=== PATIENT | female | born 1965 | race Caucasian/White ===

== ENCOUNTER 2022-03-08 12:09 | Day surgery (SDC) | payer OTHER ==
[~2022-03-08] VITALS: Ht 172.7 cm; Wt 142.8 kg
[~2022-03-08 12:09] MED LIST: ALBU90OI INH; ANORO ELLIPTA1 EACH INH; ATOR80 PO; Aspir 8181 MG PO; ENTRESTO 97 MG1 EACH PO; FERROUS SULFAT325 M3 PO; FURO20 PO; GABA300 PO; JANTOVEN5 M1 PO; KAPSPARGO SPRI100 MG PO; MONT10T PO; NITR.4SL SL; Oxybutynin Chlo10 MG PO; PANT40 PO; TRAZ50 PO; TRELEGY ELLIPT1 EACH INH; VOLTAREN ARTHRI20 GM TP; WIXELA 250-501 EAC1 INH; XARELTO20 MG PO; ZYRTEC10 M2 PO
[2022-03-08] MEDS ORDERED: XARELTO20 MG (12:26)
[2022-03-08] MEDS ORDERED: FLONASE ALLERG9.9 ML (12:38)
== END 2022-03-08 14:49 | disposition home or self-care (01) ==
LOC: ORSCSDS 12:09
PROVIDERS: Internal Medicine Gastroenterology
PROC: 0DBH8ZX Excision of Cecum, Via Natural or Artificial Opening Endoscopic, Diagnostic (ICD-10-PCS; principal; 2022-03-08 15:00)
PROC: 0DBN8ZX Excision of Sigmoid Colon, Via Natural or Artificial Opening Endoscopic, Diagnostic (ICD-10-PCS; principal; 2022-03-08 15:00)
PROC: 0DBP8ZX Excision of Rectum, Via Natural or Artificial Opening Endoscopic, Diagnostic (ICD-10-PCS; principal; 2022-03-08 15:00)
DX: K62.5 Hemorrhage of anus and rectum (principal); K63.5 Polyp of colon; K62.1 Rectal polyp; R12 Heartburn; J44.9 Chronic obstructive pulmonary disease, unspecified; I25.10 Atherosclerotic heart disease of native coronary artery without angina pectoris; G47.33 Obstructive sleep apnea (adult) (pediatric); E66.01 Morbid (severe) obesity due to excess calories; Z68.42 Body mass index [BMI] 45.0-49.9, adult; Z79.01 Long term (current) use of anticoagulants; Z79.82 Long term (current) use of aspirin; Z79.51 Long term (current) use of inhaled steroids; Z79.899 Other long term (current) drug therapy; Z87.891 Personal history of nicotine dependence; K57.30 Diverticulosis of large intestine without perforation or abscess without bleeding
CPT/HCPCS: 88305; J0330; J0461; J2250; J2405; J2704; J7120

== ENCOUNTER 2022-11-15 13:13 | Inpatient (IN) | payer OTHER ==
[2022-11-15] VITALS (8 sets, daily range): BP systolic 74–102; BP diastolic 48–88
[~2022-11-15] VITALS: Ht 170.2 cm; Wt 142.1 kg
[~2022-11-15 13:13] MED LIST changes: +FLONASE ALLERG9.9 ML; +XARELTO20 MG
[2022-11-15 13:37] LABS: BASOPHILS ABSOLUTE AUTO 0.05 K/mm3 (0.00-0.23); BASOPHILS PERCENT AUTO 1 % (0-2); EOSINOPHILS ABSOLUTE AUTO 0.06 K/mm3 (0.00-0.68); EOSINOPHILS PERCENT AUTO 1 % (0-6); Hematocrit 40.7 % (33.0-51.0); Hemoglobin 13.3 g/dL (11.5-16.0); IMMATURE GRAN ABSOLUTE AUTO 0.02 K/mm3 (0.00-0.10); IMMATURE GRAN PERCENT AUTO 0 % (0-1); LYMPHOCYTES ABSOLUTE AUTO 3.54 K/mm3 (0.84-5.20); LYMPHOCYTES PERCENT AUTO 37 % (21-46); MONOCYTES ABSOLUTE AUTO 0.53 K/mm3 (0.16-1.47); MONOCYTES PERCENT AUTO 6 % (4-13); Mean Corpuscular HGB 29.2 pg (26.0-34.0); Mean Corpuscular HGB Conc 32.7 g/dL (31.5-36.5); Mean Corpuscular Volume 90 fL (80-100); Mean Platelet Volume 10.9 fL (9.1-12.4); NEUTROPHILS ABSOLUTE AUTO 5.39 K/mm3 (1.96-9.15); NEUTROPHILS PERCENT AUTO 56 % (41-73); Platelet Count 283 K/mm3 (150-400); RDW Coefficient Variation 14.5 % (11.7-14.2); Red Blood Cell Count 4.55 M/mm3 (3.80-5.20); White Blood Cell Count 9.59 K/mm3 (4.00-11.30)
[2022-11-15 14:01] LABS: Albumin, Blood 3.4 g/dL (3.4-5.0); Albumin/Globulin Ratio 0.9 (0.8-1.8); Bilirubin, Total 0.4 mg/dL (0.1-1.0); Bun/Creatinine Ratio 16.5 (12.0-20.0); Calcium, Blood 9.4 mg/dL (8.5-10.1); Creatinine, Blood 1.27 mg/dL (0.40-1.00); Globulin, Blood 3.8 g/dL (2.2-4.0); Potassium, Blood 4.2 mmol/L (3.5-5.5); Total Protein, Blood 7.2 g/dL (6.4-8.2)
[2022-11-15 15:06] LABS: Source, Urine Clean Catch
[2022-11-15 15:15] LABS: Appearance, Urine Clear (Clear); Bilirubin, Urine Neg (Neg); Blood, Urine Neg (Neg); Color, Urine Yellow (P-Yellow); Glucose Qualitative, Urine Neg (Neg); Ketones, Urine Neg (Neg); Leukocyte Esterase, Urine Neg (Neg); Nitrite, Urine Neg (Neg); Protein, Urine Neg (Neg); Specific Gravity, Urine 1.005 (1.003-1.022); Urobilinogen, Urine NORM (Normal); pH, Urine 6.5 (5.0-8.0)
[2022-11-15 17:29] LABS: Magnesium, Blood 1.9 mg/dL (1.6-2.4)
[2022-11-15 17:31] LABS: Thyroid Stimulating Hormone 1.67 uIU/mL (0.360-4.800)
[2022-11-15 18:34] LABS: Base Excess Venous -4.4 mmol/L; Bicarbonate Venous 21.3 mmol/L (24.0-30.0); PCO2 Venous 36.4 mmHg (38-42); pH Blood Venous 7.37 (7.34-7.37)
[2022-11-15] MEDS ORDERED: ENTRESTO 97 MG1 EAC3 PO (19:40)
[2022-11-16] VITALS (55 sets, daily range): BP systolic 69–129; BP diastolic 36–97
--- NOTE | 2022-11-16 00:07 | NUR ---
ADMISSION TO ICU PT ADMITTED TO UNIT FROM ER AT 2109 VIA STRETCHER. MOVED FROM STRETCHER TO BED WITH SLIDE TRANSFER. EPI GTT RUNNING AT 1MCG/MIN. BPS IN 100/70S, HR BRADYCARDIC AT TIMES IN HIGH 40S. ASYMPTOMATIC. CURRENTLY ON 2L NC, RA AT HOME WITH CPAP @ NOC. CURRENTLY NOT REPORTING PAIN. PUREWICK PLACED AND TO SUCTION. AT BEDSIDE. A&OX4, AND WOULD LIKE TO REST AFTER A LONG DAY IN ED.
[2022-11-16 03:50] LABS: BASOPHILS ABSOLUTE AUTO 0.02 K/mm3 (0.00-0.23); BASOPHILS PERCENT AUTO 0 % (0-2); EOSINOPHILS ABSOLUTE AUTO 0.01 K/mm3 (0.00-0.68); EOSINOPHILS PERCENT AUTO 0 % (0-6); Hematocrit 39.6 % (33.0-51.0); Hemoglobin 12.8 g/dL (11.5-16.0); IMMATURE GRAN ABSOLUTE AUTO 0.04 K/mm3 (0.00-0.10); IMMATURE GRAN PERCENT AUTO 0 % (0-1); LYMPHOCYTES ABSOLUTE AUTO 1.13 K/mm3 (0.84-5.20); LYMPHOCYTES PERCENT AUTO 9 % (21-46); MONOCYTES ABSOLUTE AUTO 0.26 K/mm3 (0.16-1.47); MONOCYTES PERCENT AUTO 2 % (4-13); Mean Corpuscular HGB 28.7 pg (26.0-34.0); Mean Corpuscular HGB Conc 32.3 g/dL (31.5-36.5); Mean Corpuscular Volume 89 fL (80-100); Mean Platelet Volume 11.1 fL (9.1-12.4); NEUTROPHILS ABSOLUTE AUTO 11.09 K/mm3 (1.96-9.15); NEUTROPHILS PERCENT AUTO 88 % (41-73); Platelet Count 312 K/mm3 (150-400); RDW Coefficient Variation 14.5 % (11.7-14.2); RDW Standard Deviation 46.8 fL (35.1-46.3); Red Blood Cell Count 4.46 M/mm3 (3.80-5.20); White Blood Cell Count 12.55 K/mm3 (4.00-11.30)
[2022-11-16 04:14] LABS: Albumin, Blood 3.2 g/dL (3.4-5.0); Albumin/Globulin Ratio 0.9 (0.8-1.8); Bilirubin, Total 0.5 mg/dL (0.1-1.0); Bun/Creatinine Ratio 15.9 (12.0-20.0); Calcium, Blood 9.2 mg/dL (8.5-10.1); Creatinine, Blood 1.32 mg/dL (0.40-1.00); Globulin, Blood 3.4 g/dL (2.2-4.0); Magnesium, Blood 1.9 mg/dL (1.6-2.4); Potassium, Blood 4.5 mmol/L (3.5-5.5); Total Protein, Blood 6.6 g/dL (6.4-8.2)
--- NOTE | 2022-11-16 05:14 | NUR ---
SHIFT SUMMARY NO ACUTE EVENTS OVERNIGHT. BPS 90S-100S/60S, HR IN 50S-60S WITH EPI GTT AT 3MCG/MIN FOR MAJORITY OF SHIFT. ON 2L NC OVERNIGHT. PUREWICK TO SUCTION WITH MODERATE URINE OUTPUT. 1 BAG OF NS CURRENTLY BEING INFUSED FOR MAINTAINACE. ABLE TO GET IN SOME SLEEP THIS SHIFT.
--- NOTE | 2022-11-16 07:00 | NUR ---
ASSUME CARE: I have assumed care of this patient.
--- NOTE | 2022-11-16 16:27 | NUR ---
SHIFT/TRANSFER SUMMARY: Pt transferred to PCU from ICU. Epi titrated off. Right IJ was removed without complication after LUE power glide placed. Pt up to chair independantly. She attempted to have a BM on the commode without success twice. Purewick in place; no skin breakdown. Report given to FISH BAIT PICKER.
--- NOTE | 2022-11-16 16:37 | NUR ---
TRANSFER UPDATE REPORT RECIEVEDFROM CUSTOMER QUALITY ENGINEER AT 1621. PT ARIVED TO PCU AT 1640 VIA HOSPITAL BED. PT ABLE TO TRANSFER SELF FROM ICU BED TO PCU BED ON HER OWN, TOLERATED WELL. PT ON RA UPON ARRIVAL. TREMORS OF RIGHT HAND NOTICED AT TIME OF ARRIVAL. PT STATES "THOSE COME AND GO." PT PROVIDED A WARM BLANKET PER REQUEST. PT SITTING AT EDGE OF BED. PT ANXIOUS.
--- NOTE | 2022-11-16 18:03 | NUR ---
SHIFT SUMMARY PT A/OX4, ANXIOUS ABOUT WANTING TO "GO HOME." PT ARRIVED TO PCU TOWARDS END OF SHIFT, SEE TRANSFER NOTES. VSS SINCE ARRIVAL TO UNIT. PT ABLE TO AMBULATE ON HER OWN WITH STAFF PRESENT IN ROOM, SBA. NO REPORT OF CHEST PAIN/PRESSURE SINCE ARRIVAL TO UNIT. NO REPORT OF SOB SINCE ARRIVAL TO UNIT. NS RUNNING PER EMAR.
[2022-11-17] VITALS: BP 121/73
[2022-11-17 04:02] VITALS: BP 116/73
--- NOTE | 2022-11-17 06:00 | NUR ---
SHIFT SUMMARY ASSUMED CARE OF PT AT 1900. PT IS A/OX4. HEART SOUNDS REGULAR. LUNG SOUNDS HAVE CRACKLES IN THE L LUNG FEILD. PT STATES CURRENT SMOKER. PT WORE CPAP FOR HALF THE NOC AND THEN SAID SHE WAS "DONE WITH IT". WHILE SLEEPING WITH CPAP OFF PT WOULD DESAT TO 85% BUT THEN POP BACK UP TO 90%. PT WAS INCONTINENT DURING THE NOC. PT WAS A SBA TO BATHROOM WITH STAFF. AT START OF SHIFT PT WAS TEARFUL THAT SHE COULD NOT GO OUTSIDE. CHARGE NURSE TALKED WITH PT WHO AGREED TO GO OUTSIDE FOR 30 MIN AND THEN RETURNING WITH . PT WAS HAPPY AFTER THIS VISIT AND COOPERATIVE WITH CARE. PT STILL STATES SHE WANTS TO DC TODAY EVEN IF THAT MENT TO LEAVE AMA.
[2022-11-17 07:53] VITALS: BP 114/69
--- NOTE | 2022-11-17 10:04 | NUR ---
PT FREQUENTLY TELLS THIS RN "I'M GOING HOME TODAY. NO MATTER WHAT THE DOCTOR SAYS, I'M GOING HOME." PT EDUCATED ON HER RIGHTS AND INFORMED THAT WE CANNOT FORCE HER TO STAY AND THAT IT IS HIGHLY RECOMMENDED TO STAY SO THAT MEDICAL STAFF CAN OBSERVE PT RESPONSE TO MEDIATION ADJUSTMENTS. PT REMINDED OF LOW BP'S THAT BROUGHT PT TO THE ER. PT INFORMED THAT THE PLAN IS TO GET THE PT HOME SOON POSSIBLE BUT TO GET HER THERE IN THE SAFEST WAY POSSIBLE. PT APPEARS TO AGREE AT THIS TIME.
[2022-11-17 11:59] VITALS: BP 112/76
--- NOTE | 2022-11-17 12:10 | NUR ---
THIS RN GOT PT'S NOON VITALS, SEE CHARTS. PT CONTINUES TO EXPRESS WANTING TO GO HOME AND ASKED FOR DOCTOR TO BE UPDATED. DR CONTACTED AND UPDATED OF CURRENT VITALS. DR INSTRUCTED THIS RN TO LET PT KNOW THAT THE EALIEST A DECISION CAN BE MADE WILL BE AROUND DINNER TIME.
[2022-11-17] MEDS ORDERED: HYDCOR10 PO (16:58)
--- NOTE | 2022-11-17 17:48 | NUR ---
DISCHARGE UPDATE DISCHARGE INSTRUCTIONS GONE OVER WITH PT AND PT AT 174. PT APPEARED UNINTERESTED DURING INSTRUCTIONS. PT ASKED IF SHE HAD ANY QUESTIONS, PT STATED THAT SHE WANTS TO GO HOME. INFORMATION FOR NEW MED PROVIDED IN DISCHARGE PACKET, PT NOTIFIED OF INSTRUCTIONS. PT DISCHARGED AT 174 VIA WHEELCHAIR AND ON RA. PT HAD PT BELONGINGS IN A BAG ALONG WITH DISCHARGE PACKET DURING DISCHARGE. PT ABLE TO TRANSFER SELF TO AND FROM WHEELCHAIR ON HER OWN, TOLERATED WELL.
== END 2022-11-17 17:43 | disposition home or self-care (01) | DRG 292 ==
LOC: ER 13:13 → ICUE 19:53 → ERHOLD 19:53 → ER 19:53 → ICUE 19:53 → ERHOLD 21:10 → ICUE 21:17 → PCU 11-16 14:56 → ICUE 11-16 14:56 → PCU 11-16 14:56 → ICUE 11-16 15:01 → PCU 11-16 17:07
PROVIDERS: Nurse Practitioner Acute Care; Physician Assistant; Student in an Organized Health Care Education/Training Program; ADMIT Internal Medicine
PROC: 3E033XZ Introduction of Vasopressor into Peripheral Vein, Percutaneous Approach (ICD-10-PCS; 2022-11-15)
PROC: 02HV33Z Insertion of Infusion Device into Superior Vena Cava, Percutaneous Approach (ICD-10-PCS; principal; 2022-11-16)
PROC: B548ZZA Ultrasonography of Superior Vena Cava, Guidance (ICD-10-PCS; 2022-11-16)
DX: R57.9 Shock, unspecified (principal); F17.213 Nicotine dependence, cigarettes, with withdrawal; N17.9 Acute kidney failure, unspecified; Z68.42 Body mass index [BMI] 45.0-49.9, adult; I50.42 Chronic combined systolic (congestive) and diastolic (congestive) heart failure; I11.0 Hypertensive heart disease with heart failure; G40.909 Epilepsy, unspecified, not intractable, without status epilepticus; J44.9 Chronic obstructive pulmonary disease, unspecified; K21.9 Gastro-esophageal reflux disease without esophagitis; I51.3 Intracardiac thrombosis, not elsewhere classified; R00.1 Bradycardia, unspecified; E78.00 Pure hypercholesterolemia, unspecified; E66.01 Morbid (severe) obesity due to excess calories; I25.10 Atherosclerotic heart disease of native coronary artery without angina pectoris; G47.33 Obstructive sleep apnea (adult) (pediatric); E86.0 Dehydration; F41.1 Generalized anxiety disorder; F32.A Depression, unspecified; Z86.73 Personal history of transient ischemic attack (TIA), and cerebral infarction without residual deficits; Z88.8 Allergy status to other drugs, medicaments and biological substances; Z95.5 Presence of coronary angioplasty implant and graft; Z90.49 Acquired absence of other specified parts of digestive tract; Z99.89 Dependence on other enabling machines and devices; Z79.01 Long term (current) use of anticoagulants; Z79.82 Long term (current) use of aspirin; Z79.899 Other long term (current) drug therapy
CPT/HCPCS: 36415; 36556; 71045; 74174; 80053; 80400; 81003; 82533; 82803; 83605; 83690; 83735; 83880; 84439; 84443; 84484; 84703; 85025; 93005; 93010; 94640; 94660; 94664; 94762; 96361-59; 96365-59; 96366-59; 96367-59; 96368; 96375; 96375-59; 96376; 99285-25; A9270; C1751; C8929; G0378; J0171; J0612; J0834; J1610; J1720; J1885; J2060; J2405; J2765; J7030; J7040; J7060; J7120; Q9957; Q9967

== ENCOUNTER → 2022-12-08 | Outpatient (CLI) | payer OTHER ==
[~2022-12-08] MED LIST changes: +ENTRESTO 97 MG1 EAC3 PO; +HYDCOR10 PO
== END | disposition home or self-care (01) ==
LOC: PLD 14:10 → LAB SHORT 14:10
DX: N84.0 Polyp of corpus uteri (principal); N88.8 Other specified noninflammatory disorders of cervix uteri
CPT/HCPCS: 88305

== ENCOUNTER → 2022-12-15 | Outpatient (CLI) | payer OTHER | END | disposition home or self-care (01) | LOC: LAB SHORT 12:54 → LAB 12:54 | PROVIDERS: Family Medicine | DX: E27.40 Unspecified adrenocortical insufficiency (principal) | CPT/HCPCS: 81050; 82530; 82570 ==

== ENCOUNTER 2023-02-13 02:18 | Day surgery (SDC) | payer OTHER ==
[2023-02-13 08:25] VITALS: BP 102/61
[2023-02-13] MEDS ORDERED: NYSTRIT TOP (09:26)
[2023-02-13] MEDS ORDERED: TRELEGY ELLIPT1 EACH INH (09:26)
[2023-02-13] MEDS ORDERED: PARO10 PO (09:27)
[2023-02-13] MEDS ORDERED: TOPI100 PO (09:27)
--- NOTE | 2023-02-13 10:36 | NUR ---
INITIAL BASELINE LAB DRAW DONE WITH IV START. CORTROSYN ADMINISTERED IM. 30 MIN AFTER IM INJECTION LABS DRAWN FROM IV SITE PER PROTOCOL. IN 30 ADDITIONAL MINUTES A THIRD AND FINAL LAB DRAW WAS DRAWN FROM IV SITE PER PROTOCOL.
== END 2023-02-13 09:49 | disposition home or self-care (01) ==
LOC: ATC 02:18
DX: E27.40 Unspecified adrenocortical insufficiency (principal); I50.20 Unspecified systolic (congestive) heart failure; N18.31 Chronic kidney disease, stage 3a; J44.9 Chronic obstructive pulmonary disease, unspecified; E78.00 Pure hypercholesterolemia, unspecified; G47.33 Obstructive sleep apnea (adult) (pediatric)
CPT/HCPCS: 36415; 80400; 82533; 96372; J0834

== ENCOUNTER 2023-07-13 07:10 | Day surgery (SDC) | payer OTHER ==
[~2023-07-13] VITALS: Ht 170.2 cm; Wt 116.9 kg
[~2023-07-13 07:10] MED LIST changes: +Lactated Ringer's 1,000 ML IV ONE; +NYSTRIT TOP; +PARO10 PO; +TOPI100 PO
[2023-07-13] MEDS ORDERED: Bisoprolol Fumar5 MG PO (08:00)
[2023-07-13] MEDS ORDERED: FentaNYL Citrate 50 MCG/ML 2 ML Injection ONE ×2 (08:07→09:52)
[2023-07-13] MEDS ORDERED: Midazolam HCl 1MG / ML 2ML Vial ONE (08:07)
[2023-07-13] MEDS ORDERED: Ropivacaine 0.5% HCl/Pf 5 MG/ML 20ML VIAL ONE (08:12)
[2023-07-13] MEDS ORDERED: Lactated Ringer's 1,000 ML IV ONE ×2 (08:17→10:28)
[2023-07-13] MEDS ORDERED: NS 50 ML IV ONE (08:24)
[2023-07-13] MEDS ORDERED: CeFAZolin Sodium 2,000 MG VIAL ONE (08:24)
[2023-07-13] MEDS ORDERED: Etomidate 2MG / ML 10ML Vial ONE (08:29)
[2023-07-13] MEDS ORDERED: propofoL 20 ML IV ONE (08:30)
[2023-07-13] MEDS ORDERED: ePHEDrine Sulfate 50 MG/ML 1ML Injection ONE (08:32)
[2023-07-13] MEDS ORDERED: Ketorolac Tromethamine 30mg Vial ONE (08:59)
[2023-07-13] MEDS ORDERED: Sugammadex Sodium 200 MG/2ML SDV (100 MG/ML) ONE (08:59)
--- NOTE | 2023-07-13 08:59 | NUR ---
07/13/23 0859 Sugey Moffett 20ML OF ROPIVACAINE 0.5% MIXED AND VERIFIED WITH 0.1ML OF EPI (1MG/ML) TO MAKE ROPIVACAINE 0.5% WITH EPI 1:200,000 FOR INJECTION AT THE OPSITE BY DR PLAZA. CHLORHEXIDINE USED TO CLEAN UNDER AND AROUND NAILS AFTER ALCOHOL PREP, AND PRIOR TO CHLORAPREP PREP.
[2023-07-13] MEDS ORDERED: EPINEPhrine HCl 1 MG/ML 1ML Amp XX ONE (09:01)
--- NOTE | 2023-07-13 09:53 | NUR ---
07/13/23 0953 Dinorah Yoo PT WAS PLACED ON 5 L OF SUPPLEMENTAL O2 AFTER DROPPING TO 87%. PT IS COUGHING AND STATED THAT SHE IS TRYING TO QUIT SMOKING, SO SHE HAS BEEN COUGHING A LOT. COUGHING IS PRODUCTIVE WHEN THIS OCCURS, AND THE O2% RISES.
[2023-07-13] MEDS ORDERED: OxyCODONE HCL 5 MG TAB ONE (10:18)
[2023-07-13 10:26] VITALS: BP 108/70
== END 2023-07-13 10:59 | disposition home or self-care (01) ==
LOC: ORSCSDS 07:10
PROVIDERS: Orthopaedic Surgery
PROC: 01N50ZZ Release Median Nerve, Open Approach (ICD-10-PCS; principal; 2023-07-13 08:30)
PROC: 01N40ZZ Release Ulnar Nerve, Open Approach (ICD-10-PCS; principal; 2023-07-13 08:30)
DX: G56.02 Carpal tunnel syndrome, left upper limb (principal); G56.22 Lesion of ulnar nerve, left upper limb; I10 Essential (primary) hypertension; J44.9 Chronic obstructive pulmonary disease, unspecified; G47.33 Obstructive sleep apnea (adult) (pediatric); I50.9 Heart failure, unspecified; E66.01 Morbid (severe) obesity due to excess calories; Z86.73 Personal history of transient ischemic attack (TIA), and cerebral infarction without residual deficits; Z68.41 Body mass index [BMI] 40.0-44.9, adult; F17.210 Nicotine dependence, cigarettes, uncomplicated; Z79.01 Long term (current) use of anticoagulants; Z79.899 Other long term (current) drug therapy
CPT/HCPCS: A9270; J0171; J0690; J1885; J2250; J2704; J2795; J3010; J7120